=== PATIENT | male | born 1995 | race Caucasian/White ===

== ENCOUNTER 2018-10-03 10:19 | Emergency (ER) | payer OTHER ==
--- NOTE | 2018-10-03 10:35 | ED Physician Documentation ---
Abdominal Pain - HISTORIAN Historian: patient - HPI Stated Complaint: nausea and vomiting HX of drug use (in treatment) and IBS Chief Complaint: Nausea,Vomiting,Diarrhea Onset: days ago (4-5) Duration: constant Timing: still present Context: denies: out of country travel, bad food, recent trauma Severity: mild Quality: cramping Associated Symptoms: nausea, vomiting, diarrhea. denies: fever, chills, coffee ground emesis, bloody emesis, bloody stools, grossly bloody stools, mucous, sweating Exacerbated by: nothing Relieved by: nothing Further Comments: yes (He states the nausea and vomiting and diarrhea. No fever. He has no sick contacts. He is on day 6 of withdrawl of his drug of choice Xanax and herion. He is in treatment at [facility]. He has no urinary issues or complaints.) - ROS CONST: no problems GI/: none CVS/RESP: none MS/SKIN/LYMPH: none NEURO/PSYCH: headache - SOCIAL HX Smoking History: non-smoker Alcohol Use: none Drug Use: heroin - FAMILY HX Family History: none - PAST HX Past History: none, other (gastritis and IBS ) Ischemic Bowel Risk Factors: none Other History: none Home Medications: Ambulatory Orders Medication Instructions Recorded Buprenorphine HCl/Naloxone HCl 1 each SL NOW 10/03/18 [Suboxone 8 mg-2 mg Tablet] Escitalopram Oxalate [Lexapro] 10 mg PO QD 10/03/18 Mag Hydrox/Aluminum Hyd/Simeth 30 ml PO Q2 10/03/18 [Mylanta] Ondansetron HCl Rapdis [Zofran Odt] 4 mg PO Q6 10/03/18 Promethazine HCl [Phenergan] 25 mg IJ DAILY PRN 10/03/18 Allergies/Adverse Reactions: Allergies Allergy/AdvReac Type Severity Reaction Status Date / Time prochlorperazine Allergy Severe Muscle Pain Verified 10/03/18 10:36 [From Compazine] - VITAL SIGNS Vital Signs: Vital Signs Temp Pulse Resp BP Pulse Ox 99.3 F 63 14 130/81 98 10/03/18 10:24 10/03/18 18:33 10/03/18 18:33 10/03/18 18:33 10/03/18 18:33 - REVIEWED ASSESSMENTS Nursing Assessment Reviewed: Yes Vitals Reviewed: Yes Progress - Progress Progress: 1140: IV attempt via anesthesia. Unable to get full lab draw. DG 1150: Meds given. Mom had discussed carafate and bentyl previous meds for this issue. DG 1208: Nausea continues and pain "all over" meds ordered - DG 1315: states nausea is improved . He is still having cramping although improved. He states he feels the cramping is coming from back muscles now and is asking for a muscle relaxer DG 1405: states he is feeling much better and even feels he could sleep. DG 1455: discussed with mom and him plan of care they are agreeable DG ED Results Lab/Radiology - Lab Results Lab Results: Lab Results 10/03/18 10/03/18 12:20 12:20 WBC 11.00 K/ul K/ul (4.00-12.00) RBC 5.01 M/ul M/ul (3.90-5.20) Hgb 14.9 g/dL g/dL (12.0-18.0) Hct 44.0 % % (37.0-53.0) MCV 88.0 fl fl (80.0-100.0) MCH 29.7 pg pg (28.0-34.0) MCHC 33.8 g/dL g/dL (30.0-36.0) RDW 14.1 % % (11.3-14.3) Plt Count 297 K/mm3 K/mm3 (130-400) Neut % (Auto) 77.8 % % (39.0-79.0) Lymph % (Auto) 14.6 % L % (16.0-50.0) [place] % (Auto) 6.0 % % (0.0-11.0) Eos % (Auto) 0.9 % % (0.0-6.8) Baso % (Auto) 0.7 (0.0-1.5) Neut # (Auto) 8.6 # k/uL H # k/uL (1.4-7.7) Lymph # (Auto) 1.6 # k/uL # k/uL (0.6-4.0) [place] # (Auto) 0.7 # k/uL # k/uL (0.0-0.9) Eos # (Auto) 0.1 # k/uL # k/uL (0.0-0.6) Baso # (Auto) 0.1 # k/uL # k/uL (0.0-0.5) Sodium 145 mmol/L mmol/L (136-145) Potassium 3.7 mmol/L mmol/L (3.5-5.1) Chloride 104 mmol/L mmol/L (98-107) Carbon Dioxide 27 mmol/L mmol/L (22-30) BUN 11 mg/dL mg/dL (9-20) Creatinine 0.88 mg/dL mg/dL (0.66-1.25) Estimated Creat Clear 168 Est GFR ( Amer) > 60 (60 - ) Est GFR (Non-Af Amer) > 60 (60 - ) Glucose 120 mg/dL H mg/dL (74-106) Calcium 8.9 mg/dL mg/dL (8.4-10.2) Total Bilirubin 0.6 mg/dL mg/dL (0.2-1.3) AST 59 U/L H U/L (15-46) ALT 21 U/L U/L (13-69) Alkaline Phosphatase 80 U/L U/L (38-126) Total Protein 7.7 g/dL g/dL (6.3-8.2) Albumin 4.9 g/dL g/dL (3.5-5.0) - Orders Orders: ED Orders Category Date Time Status IV Started NOW Care 10/03/18 10:56 Active CBC/PLATELET/DIFF Stat Lab 10/03/18 12:20 Completed CMP Stat Lab 10/03/18 12:20 Completed UA W/MICRO IF INDICATED Routine Lab 10/03/18 10:57 Ordered 0.9 % Sodium Chloride [Normal Saline] 1,000 ml Med 10/03/18 10:57 Discontinued IV NOW 0.9 % Sodium Chloride [Normal Saline] 1,000 ml Med 10/03/18 14:02 Discontinued IV NOW Cyclobenzaprine HCl [Flexeril] Med 10/03/18 13:18 Discontinued 10 mg .ROUTE .STK-MED ONE Cyclobenzaprine HCl [Flexeril] Med 10/03/18 13:15 Discontinued 10 mg PO NOW ONE Dicyclomine HCl [Bentyl] Med 10/03/18 10:57 Discontinued 20 mg PO NOW ONE Ketorolac Tromethamine [Toradol] Med 10/03/18 12:04 Discontinued 30 mg IV NOW ONE Ondansetron HCl/Pf [Zofran] Med 10/03/18 10:58 Discontinued 4 mg IVP NOW ONE Promethazine HCl [Phenergan] 25 mg Med 10/03/18 12:07 Discontinued 0.9 % Sodium Chloride [Normal Saline] 50 ml IV NOW Sucralfate [Carafate] Med 10/03/18 10:59 Discontinued 1 gm PO NOW ONE Abdominal Pain Physical Exam - Physical Exam General Appearance: alert, mild distress EENT: eye inspection normal, ENT inspection normal, no signs of dehydration NECK: normal inspection RESPIRATORY: no resp distress, chest non-tender, breath sounds normal CVS: reg rate & rhythm, heart sounds normal, equal pulses, no murmur ABDOMEN: soft, normal bowel sounds, no distension, tenderness (difuse with palpation ), guarding. No: McBurney's point tenderne, rebound, distended BACK: normal inspection, no CVA tenderness SKIN: warm/dry EXTREMITIES: non-tender NEURO: oriented X3 Vital Signs: Vital Signs Temp Pulse Resp BP Pulse Ox 99.3 F 63 14 130/81 98 10/03/18 10:24 10/03/18 18:33 10/03/18 18:33 10/03/18 18:33 10/03/18 18:33 Discharge Clincal Impression: Irritable bowel syndrome Qualifiers: Irritable bowel syndrome type: with both diarrhea and constipation Qualified Code(s): K58.2 - Mixed irritable bowel syndrome Referrals: Primary Doctor,No [Primary Care Provider] - 2 Days Comments: 1. Increase fluids 2. BLAND diet - advance as tolerated 3. Carafate 1 gm twice daily x 7 (if further treatment needed PCP ) 4. Bentyl 20 mg take 1 by mouth every 6 hours as needed for abd cramps (if needed extended care PCP) 5. Anti nausea as ordered 6. Follow up with GI 7. Return to ER for any concerns Condition: Stable Disposition: 01 HOME, SELF-CARE Decision to Admit: NO Date of Decison to Admit: 10/03/18 Decision Time: 14:15
[2018-10-03] MEDS: DICYCLOMINE HCL 20 MG TABLET PO ONE (11:12)
[2018-10-03] MEDS: 0.9 % SODIUM CHLORIDE 1,000 ML IV ONE ×2 (11:50→14:15)
[2018-10-03] MEDS: SUCRALFATE 1 GM TABLET PO ONE (11:50)
[2018-10-03] MEDS: ONDANSETRON HCL/PF 4 MG/ 2ML VIAL IVP ONE (11:50)
[2018-10-03] MEDS: KETOROLAC TROMETHAMINE 30 MG/1ML VIAL IV ONE (12:10)
[2018-10-03] MEDS: PROMETHAZINE HCL 25 MG in 0.9 % SODIUM CHLORIDE 50 ML IV ONE (12:20)
[2018-10-03 12:49] LABS: MEAN CORPUSCULAR HEMOGLOBIN 29.7 pg (28.0-34.0)
[2018-10-03 12:50] LABS: BASOPHILS % 0.7 (0.0-1.5); EOSINOPHILS % 0.9 % (0.0-6.8); NEUTROPHILS # 8.6 # k/uL (1.4-7.7)
[2018-10-03 13:09] LABS: eGFR (Non-African) > 60
[2018-10-03] MEDS: CYCLOBENZAPRINE HCL 10 MG TABLET PO ONE (13:21)
[2018-10-03] MEDS: CYCLOBENZAPRINE HCL 5 MG TABLET ONE (13:23)
[2018-10-03 18:40] VITALS: BP 130/81
[2018-10-06 10:43] LABS: APPEARANCE,URINE CLEAR (CLEAR); COLOR,URINE YELLOW (YELLOW); OCCULT BLOOD,URINE NEGATIVE (NEGATIVE); UROBILINOGEN URINE 0.2 Eu (0.2-1.0)
== END 2018-10-03 15:30 | disposition home or self-care (01) ==
LOC: ED 10:19
DX: K58.2 Mixed irritable bowel syndrome (principal)
CPT/HCPCS: 36415; 80053; 81002; 85025; 96365; 96366; 96375; 99283; 99284; J1885; J2405; J2550; J7030; S1016